=== PATIENT | female | born 1975 | race Two or more races ===

== ENCOUNTER 2017-03-22 17:32 | Inpatient (IN) | payer MEDICAID, SELFPAY ==
[2017-03-22] VITALS (7 sets, daily range): BP systolic 80–120; BP diastolic 45–65; PULSE 54–90; RESP 16–19; TEMP 37.2–38.9; O2SAT 94–99; BMI 24.0
[2017-03-22] MEDS: Ketorolac 30 MG/ML Syringe IV (18:06)
[2017-03-22] MEDS: 0.9% Normal Saline 1,000 ML 1000 ML IV (18:06)
[2017-03-22] MEDS: Ondansetron 4 MG/2 ML Vial IV (18:06)
[2017-03-22 18:25] LABS: Absolute Lymphocyte Count 0.37 X10^3/ul (0.83-4.51); Absolute Neutrophil Count 8.8 X10^3/uL (2.0-7.7); Basophil# 0.01 X10^3/uL; Basophil% 0.1 % (0-1); Differential Indicated SCAN CRITERIA MET; Eosinophil# 0.01 X10^3/uL; Eosinophils% 0.1 % (0-5); Hematocrit 36.5 % (37-47); Hemoglobin 12.2 g/dl (12.0-15.0); Lymphocyte # 0.37 X10^3/ul (4.0); Lymphocyte % 3.7 % (19-41); Mean Corp Hgb Conc 33.4 g/gl (32-36); Mean Corpuscular Hgb 32.9 pg (27.0-32.0); Mean Corpuscular Volume 98.4 fL (81-99); Mean Platelet Vol. 9.8 fl (6.2-12.0); Monocyte# 0.88 X10^3/uL; Monocyte% 8.7 % (0-10); Neutrophil # 8.81 X10^3/uL (2.7-7.7); Neutrophil % 87.3 % (47-70); POSITIVE COUNT NO; POSITIVE DIFFERENTIAL YES; POSITIVE MORPHOLOGY NO; Platelet Count 206 K/mm3 (150-450); RBC Distribution Width CV 14.8 % (11.6-14.6); RBC Distribution Width SD 52.9 fl (35.1-43.9); Red Blood Count 3.71 M/mm3 (4.2-5.4); White Blood Count 10.1 K/mm3 (4.4-11.0)
[2017-03-22 18:29] LABS: Anion Gap 10 (5-15); BUN 8 mg/dL (7-18); BUN/Creat Ratio 8.2 RATIO (10-20); Calcium,Total 8.5 mg/dL (8.5-10.1); Chloride 104 mmol/L (98-107); Creatinine, Serum 0.97 mg/dL (0.55-1.02); EST Glomerular Filtration Rate 67 mL/min (>60); Est Glom Filt Rate - Afr Amer 81 mL/min (>60); Estimated Creatinine Clearance 65.91 ml/min; Glucose 103 mg/dL (70-110); Sodium Level 140 mmol/L (136-145)
[2017-03-22 18:48] LABS: Bacteria 0 SEEN /hpf (None Seen); Mucous, Urine 0 SEEN /hpf (<or=2+); Red Blood Cells-Urine 0 SEEN /hpf (0-5); Squamous Epithelial Cells - UA 0 SEEN /hpf (5-10)
[2017-03-22 18:55] LABS: Color, Urine Yellow (Yellow); Glucose, Dipstick Normal (Normal); Ketone-Dipstick Negative (Negative); Leukocyte Esterase-Dipstick 500 /ul (Negative); Nitrite-Dipstick Positive (Negative); Occult Blood-Urine 250 /ul (Negative); Protein-Dipstick 100 mg/dl (Negative); Specific Gravity, Urine 1.015 (1.002-1.030); Urine Bilirubin Dipstick Negative (Negative); Urine Clarity Cloudy (Clear); Urine Urobilinogen Normal (Normal)
[2017-03-22 19:11] LABS: White Blood Cells >100 SEEN /hpf (0-5)
[2017-03-22 19:18] LABS: Pregnancy, Serum, hCG Quali. NEGATIVE Negative (0-9 Nonpreg)
[2017-03-22] MEDS: 0.9% Normal Saline 1,000 ML 150 ML IV (20:07)
[2017-03-22] MEDS: Ceftriaxone 1 GM/50 ML BAG IV (20:07)
--- NOTE | 2017-03-22 20:13 | ED.DCSUM_ITS ---
- ER Visit Summary Date of Service: 03/22/17 Chief Complaint: Bad UTI History of Present Illness: The patient is a 41 F who reports a 2-3 day history of dysuria and frequency. She is complaining of right flank pain. She has had nausea but no vomiting. She denies diarrhea. Patient states she went to the urgent care where they would not see her and sent her here to the emergency room. Patient denies any significant past medical history. Physical Examination: Blood pressure is 120/65, temperature 101.2, heart rate 90 , respiratory rate 18, pulse ox 99% on room air. Patient's lying on her left side. She appears ill, but not toxic. Head and neck examination is grossly unremarkable. Heart is regular rate and rhythm. Lung sounds are clear. Abdomen is soft with epigastric and suprapubic tenderness. There is no guarding or rebound. Hypoactive but present bowel sounds are noted. Back examination does reveal right CVA tenderness. Test Results: CBC was normal white count with 87% neutrophils. Chemistry studies are normal. Urinalysis returns positive for nitrates and rhythm 100 white blood cells. test is negative. Emergency Department Course and Treatment: Patient was given Toradol, Zofran, and IV fluids. On repeat evaluation patient states she feels improved. Test results were discussed with her. Plan was to give a dose of IV Rocephin and then discharged with a week prescription for Bactrim to cover for pyelonephritis. Nursing staff recheck the patient's vital signs after IV Rocephin. Blood pressure is 87/58, heart rate 80, respiratory rate 16, pulse ox 96% on room air, temperature 101.7. At that time p.o. Tylenol and an additional 500 cc IV fluid bolus is ordered. Repeat vital signs currently reveal blood pressure of 80/46, heart rate 82, respiratory rate 16, pulse ox 96 % on room air, temperature 102.1. At this time blood cultures and lactate will be drawn. Patient is given additional IV fluids. Patient will be admitted for further treatment and evaluation. Treatment Plan: [] Disposition: Admit Impression: 1. Pyelonephritis 2. Hypotension This note was generated with HypeSparkation software. It may contain incorrect words, spelling, and punctuation that were not noted in review of the chart prior to signing ED Disposition - Plan for ED Patient: Disposition: Home or Assisted Living Chief Complaint: Complaint Instructions: ED UTI Cystitis Female Prescriptions: Ondansetron [Zofran Odt] 4 mg PO Q8H PRN PRN #10 tablet PRN Reason: Nausea Smz/Tmp Ds [Bactrim Ds] 1 tablet PO BID #14 tablet Referrals: Maribel Mc MD [STAFF PHYSICIAN] - As soon as possible
[2017-03-22] MEDS: Acetaminophen 500 MG Tablet 1000 MG PO (21:03)
[2017-03-22] MEDS: 0.9% Normal Saline 1,000 ML 999 ML IV (22:16)
[2017-03-22] MEDS: Ibuprofen 600 MG Tablet PO (22:17)
[2017-03-22 23:03] LABS: Lactic Acid 0.7 mmol/L (0.4-2.0)
--- NOTE | 2017-03-22 23:10 | PCM.HP.STD ---
Problem List (1) Tobacco use Status: Chronic (2) Pyelonephritis Status: Acute History of Present Illness Date of Admission: 03/22/17 Chief Complaint: Urinary sxs. The patient is a 41 y/o F w/ PMHx: Tobacco use who presents to the [facility] ED on 03/22/17 with history of dysuria, foul smelling urine, right flank pain with body headaches, headache and fever with evaluation at with referral to the ED. She notes being relatively healthy but notes ~ 17 years ago following the of her daughter she had an episode of pyelonephritis and these symptoms mirror what she felt like then. In the ED work-up included T 102.1, HR 80-90s documented, tachycardic on examination, BP 120/65-->-->85/45-->91/58, RR 16, 97% on RA, CBC w/ WBC 10.2, Hgb 12.2, Plts 206 with L shift, BMP not marked appearing, LA 0.7, negative testing, UA remarkable w/ pending UCx, Bld Cx obtained also in the ED. In the ED patient administered 2L NS, zofran, toradol, motrin, rocephin. Past Medical History Past Medical History (Chronic Problems): Chronic Problems Tobacco use (Chronic) Allergies codeine Allergy (Verified 03/22/17 17:36) Itching hydromorphone [From Dilaudid] Allergy (Verified 03/22/17 17:36) Itching andrzej Allergy (Verified 03/22/17 17:36) Itching Home Medications: Ambulatory Orders Medication Instructions Recorded Ondansetron [Zofran Odt] 4 mg PO Q8H PRN PRN #10 tablet 03/22/17 Smz/Tmp Ds [Bactrim Ds] 1 tablet PO BID #14 tablet 03/22/17 Psychiatric History: No pertinent psych hx MULTIMEDIA ARTIST History: No pertinent MULTIMEDIA ARTIST history Lives: With Family Smoking Status: Current some day smoker - She notes ~ 1 pack per week, commonly vaps instead, not heavy smoker. Tobacco Use: Cigarettes Alcohol: Occasional Drugs: None - *Family History Maternal History Items: - - Mother w/ thyroid disease. Paternal History Items: No pertinent history Review of Systems Constitutional: Reports: Chills, Fever, Malaise, Fatigue. Denies: Weight Change HEENT: Denies: Head Aches, Sinus Congestion, Sinus Drainage Cardiovascular: Denies: Chest Pain, Palpitations Respiratory: Denies: Cough, Shortness of breath at rest, Sputum production Gastrointestinal: Reports: Abdominal Pain, Nausea. Denies: Vomiting Genitourinary: Reports: Dysuria Musculoskeletal: Reports: Back Pain. Denies: Joint Pain, Joint Tenderness Skin: Denies: Rash, Wounds Neurological: Denies: Numbness, Tingling, Focal weakness Psychiatric: Denies: Anxiety, Depression, Homicidal Ideations, Suicidal Ideations Hematologic/ Lymphatic: Denies: Easy Bruising, Easy Bleeding VTE Information - Inpt Only VTE Present on Admission: No VTE Mechan Device Prophylaxis: SCD's VTE Pharm Prophylaxis ordered?: Yes Patient Problems: Active and Suspected Problems Pyelonephritis (Acute) Subjective: Seated upright in the ED bed, grimacing mildly with movement, NAD. Objective: Physical Examination: General: awake, alert, oriented x 3 and cooperative, seated upright in the ED bed, fatigued. Skin: normal color, turgor, no icterus, cyanosis. HEENT: AT/NC, EOMI, PERRLA, mildly dry MM, no carotid bruits or JVD noted. Lungs: CTA bilaterally, moderate effort, moderate decrease BL bases, no rales, ronchi or wheezing, R CVA TTP. Heart: Mildly tachycardic (low-100s upon count) with regular rhythm; no gallop, rub audible. Abdomen: soft, mild TTP R sided, ND, normal BS, no HSM. Extremities: no cyanosis, clubbing, or edema. Neurological: patient awake, alert, oriented x 3; cognitive function intact; pupils equally reactive to light and accomodation; cranial nerves II-XII grossly normal, moving all 4 extremities, no focal deficits, strength moderately globally decreased secondary to acute presentation. Psychiatric: affect appears fatigued, no acute evidence of depressive or anxiety feelings. - Physical Exam Vital Signs Temp Pulse Resp BP Pulse Ox 102.1 F H 87 16 91/58 L 94 03/22/17 21:49 03/22/17 22:44 03/22/17 22:44 03/22/17 22:44 03/22/17 22:44 Oxygen Delivery Method Room Air Weight: 140 lb 6.951 oz Body Mass Index (BMI) 24.0 Laboratory Tests Past 24 Hrs 03/22/17 03/22/17 03/22/17 18:08 18:08 18:08 WBC 10.1 RBC 3.71 L Hgb 12.2 Hct 36.5 L MCV 98.4 MCH 32.9 H MCHC 33.4 RDW 14.8 H RDW Differential 52.9 H Plt Count 206 MPV 9.8 Immature Gran % (Auto) 0.100 Neut % (Auto) 87.3 H Lymph % (Auto) 3.7 L [place] % (Auto) 8.7 Eos % (Auto) 0.1 Baso % (Auto) 0.1 Absolute Neuts (auto) 8.8 H Absolute Lymphs (auto) 0.37 L Total Counted Not Reportable Sodium 140 Potassium 4.0 Chloride 104 Carbon Dioxide 26.0 Anion Gap 10 BUN 8 Creatinine 0.97 Estim Creat Clear Calc 65.91 Est GFR (MDRD) Af Amer 81 Est GFR (MDRD) Non-Af 67 BUN/Creatinine Ratio 8.2 L Glucose 103 Lactic Acid Calcium 8.5 Serum , Qual NEGATIVE Urine Color Urine Clarity Urine pH Ur Specific [place] Urine Protein Urine Glucose (UA) Urine Ketones Urine Occult Blood Urine Nitrite Urine Bilirubin Urine Urobilinogen Ur Leukocyte Esterase Urine RBC Urine WBC Ur Squamous Epith Cells Urine Bacteria Urine Mucus 03/22/17 03/22/17 18:42 22:00 WBC RBC Hgb Hct MCV MCH MCHC RDW RDW Differential Plt Count MPV Immature Gran % (Auto) Neut % (Auto) Lymph % (Auto) [place] % (Auto) Eos % (Auto) Baso % (Auto) Absolute Neuts (auto) Absolute Lymphs (auto) Total Counted Sodium Potassium Chloride Carbon Dioxide Anion Gap BUN Creatinine Estim Creat Clear Calc Est GFR (MDRD) Af Amer Est GFR (MDRD) Non-Af BUN/Creatinine Ratio Glucose Lactic Acid 0.7 Calcium Serum , Qual Urine Color Yellow Urine Clarity Cloudy Urine pH 6.0 Ur Specific [place] 1.015 Urine Protein 100 H Urine Glucose (UA) Normal Urine Ketones Negative Urine Occult Blood 250 H Urine Nitrite Positive H Urine Bilirubin Negative Urine Urobilinogen Normal Ur Leukocyte Esterase 500 H Urine RBC 0 SEEN Urine WBC >100 SEEN Ur Squamous Epith Cells 0 SEEN Urine Bacteria 0 SEEN Urine Mucus 0 SEEN Assessment/Plan Active and Suspected Problems Pyelonephritis (Acute) The patient is a 41 y/o F w/ PMHx: Tobacco use who presents to the [facility] ED on 03/22/17 with history of dysuria, foul smelling urine, right flank pain with body headaches, headache and fever with evaluation at with referral to the ED. (1) Sepsis secondary to Acute Pyelonephritis: Febrile in the ED, hypotensive requiring >2L NS administration, tachycardic upon evaluation low-100s. Will admit to [facility], UA upon ED evaluation remarkable, pending UCx, admission CBC w/ WBC 10.2 with L shift, continue IVFs, monitor I/Os, continue IV Rocephin w/ transition as able pending sensitivities and speciation. Bld cx x 2 obtained in the ED. PRN pain regimen, nausea regimen. (2) Tobacco Abuse: Encouraged cessation, inpatient consultation per RT, NR if desired but level lower than lowest patch available. (3) DVT prophylaxis: SCDs, low risk. Code Visit OBSV E&M: 65921 Initial observation care L3
--- NOTE | 2017-03-22 23:19 | HP.PCM_ITS ---
Problem List (1) Tobacco use Status: Chronic (2) Pyelonephritis Status: Acute History of Present Illness Date of Admission: 03/22/17 Chief Complaint: Urinary sxs. The patient is a 41 y/o F w/ PMHx: Tobacco use who presents to the [facility] ED on with history of dysuria, foul smelling urine, right flank pain with body headaches, headache and fever with evaluation at with referral to the ED. She notes being relatively healthy but notes ~ 17 years ago following the of her daughter she had an episode of pyelonephritis and these symptoms mirror what she felt like then. In the ED work-up included T 102.1, HR 80-90s documented, tachycardic on examination, BP 120/65-->-->85/45-->91/58, RR 16, 97 % on RA, CBC w/ WBC 10.2, Hgb 12.2, Plts 206 with L shift, BMP not marked appearing, LA 0.7, negative testing, UA remarkable w/ pending UCx, Bld Cx obtained also in the ED. In the ED patient administered 2L NS, zofran, toradol, motrin, rocephin. Past Medical History Past Medical History (Chronic Problems): Chronic Problems Tobacco use (Chronic) Allergies codeine Allergy (Verified 03/22/17 17:36) Itching hydromorphone [From Dilaudid] Allergy (Verified 03/22/17 17:36) Itching andrzej Allergy (Verified 03/22/17 17:36) Itching Home Medications: Ambulatory Orders Medication Instructions Recorded Ondansetron [Zofran Odt] 4 mg PO Q8H PRN PRN #10 tablet 03/22/17 Smz/Tmp Ds [Bactrim Ds] 1 tablet PO BID #14 tablet 03/22/17 Psychiatric History: No pertinent psych hx LAB TECH History: No pertinent LAB TECH history Lives: With Family Smoking Status: Current some day smoker - She notes ~ 1 pack per week, commonly vaps instead, not heavy smoker. Tobacco Use: Cigarettes Alcohol: Occasional Drugs: None - *Family History Maternal History Items: - - Mother w/ thyroid disease. Paternal History Items: No pertinent history Review of Systems Constitutional: Reports: Chills, Fever, Malaise, Fatigue. Denies: Weight Change HEENT: Denies: Head Aches, Sinus Congestion, Sinus Drainage Cardiovascular: Denies: Chest Pain, Palpitations Respiratory: Denies: Cough, Shortness of breath at rest, Sputum production Gastrointestinal: Reports: Abdominal Pain, Nausea. Denies: Vomiting Genitourinary: Reports: Dysuria Musculoskeletal: Reports: Back Pain. Denies: Joint Pain, Joint Tenderness Skin: Denies: Rash, Wounds Neurological: Denies: Numbness, Tingling, Focal weakness Psychiatric: Denies: Anxiety, Depression, Homicidal Ideations, Suicidal Ideations Hematologic/ Lymphatic: Denies: Easy Bruising, Easy Bleeding VTE Information - Inpt Only VTE Present on Admission: No VTE Mechan Device Prophylaxis: SCD's VTE Pharm Prophylaxis ordered?: Yes Patient Problems: Active and Suspected Problems Pyelonephritis (Acute) Subjective: Seated upright in the ED bed, grimacing mildly with movement, NAD. Objective: Physical Examination: General: awake, alert, oriented x 3 and cooperative, seated upright in the ED bed, fatigued. Skin: normal color, turgor, no icterus, cyanosis. HEENT: AT/NC, EOMI, PERRLA, mildly dry MM, no carotid bruits or JVD noted. Lungs: CTA bilaterally, moderate effort, moderate decrease BL bases, no rales, ronchi or wheezing, R CVA TTP. Heart: Mildly tachycardic (low-100s upon count) with regular rhythm; no gallop, rub audible. Abdomen: soft, mild TTP R sided, ND, normal BS, no HSM. Extremities: no cyanosis, clubbing, or edema. Neurological: patient awake, alert, oriented x 3; cognitive function intact; pupils equally reactive to light and accomodation; cranial nerves II-XII grossly normal, moving all 4 extremities, no focal deficits, strength moderately globally decreased secondary to acute presentation. Psychiatric: affect appears fatigued, no acute evidence of depressive or anxiety feelings. - Physical Exam Vital Signs Temp Pulse Resp BP Pulse Ox 102.1 F H 87 16 91/58 L 94 03/22/17 21:49 03/22/17 22:44 03/22/17 22:44 03/22/17 22:44 03/22/17 22:44 Oxygen Delivery Method Room Air Weight: 140 lb 6.951 oz Body Mass Index (BMI) 24.0 Laboratory Tests Past 24 Hrs 03/22/17 03/22/17 03/22/17 18:08 18:08 18:08 WBC 10.1 RBC 3.71 L Hgb 12.2 Hct 36.5 L MCV 98.4 MCH 32.9 H MCHC 33.4 RDW 14.8 H RDW Differential 52.9 H Plt Count 206 MPV 9.8 Immature Gran % (Auto) 0.100 Neut % (Auto) 87.3 H Lymph % (Auto) 3.7 L [place] % (Auto) 8.7 Eos % (Auto) 0.1 Baso % (Auto) 0.1 Absolute Neuts (auto) 8.8 H Absolute Lymphs (auto) 0.37 L Total Counted Not Reportable Sodium 140 Potassium 4.0 Chloride 104 Carbon Dioxide 26.0 Anion Gap 10 BUN 8 Creatinine 0.97 Estim Creat Clear Calc 65.91 Est GFR (MDRD) Af Amer 81 Est GFR (MDRD) Non-Af 67 BUN/Creatinine Ratio 8.2 L Glucose 103 Lactic Acid Calcium 8.5 Serum , Qual NEGATIVE Urine Color Urine Clarity Urine pH Ur Specific [place] Urine Protein Urine Glucose (UA) Urine Ketones Urine Occult Blood Urine Nitrite Urine Bilirubin Urine Urobilinogen Ur Leukocyte Esterase Urine RBC Urine WBC Ur Squamous Epith Cells Urine Bacteria Urine Mucus 03/22/17 03/22/17 18:42 22:00 WBC RBC Hgb Hct MCV MCH MCHC RDW RDW Differential Plt Count MPV Immature Gran % (Auto) Neut % (Auto) Lymph % (Auto) [place] % (Auto) Eos % (Auto) Baso % (Auto) Absolute Neuts (auto) Absolute Lymphs (auto) Total Counted Sodium Potassium Chloride Carbon Dioxide Anion Gap BUN Creatinine Estim Creat Clear Calc Est GFR (MDRD) Af Amer Est GFR (MDRD) Non-Af BUN/Creatinine Ratio Glucose Lactic Acid 0.7 Calcium Serum , Qual Urine Color Yellow Urine Clarity Cloudy Urine pH 6.0 Ur Specific [place] 1.015 Urine Protein 100 H Urine Glucose (UA) Normal Urine Ketones Negative Urine Occult Blood 250 H Urine Nitrite Positive H Urine Bilirubin Negative Urine Urobilinogen Normal Ur Leukocyte Esterase 500 H Urine RBC 0 SEEN Urine WBC >100 SEEN Ur Squamous Epith Cells 0 SEEN Urine Bacteria 0 SEEN Urine Mucus 0 SEEN Assessment/Plan Active and Suspected Problems Pyelonephritis (Acute) The patient is a 41 y/o F w/ PMHx: Tobacco use who presents to the [facility] ED on with history of dysuria, foul smelling urine, right flank pain with body headaches, headache and fever with evaluation at with referral to the ED. (1) Sepsis secondary to Acute Pyelonephritis: Febrile in the ED, hypotensive requiring >2L NS administration, tachycardic upon evaluation low-100s. Will admit to MS, UA upon ED evaluation remarkable, pending UCx, admission CBC w/ WBC 10.2 with L shift, continue IVFs, monitor I/Os, continue IV Rocephin w/ transition as able pending sensitivities and speciation. Bld cx x 2 obtained in the ED. PRN pain regimen, nausea regimen. (2) Tobacco Abuse: Encouraged cessation, inpatient consultation per RT, NR if desired but level lower than lowest patch available. (3) DVT prophylaxis: SCDs, low risk. Code Visit OBSV E&M: 86692 Initial observation care L3
[2017-03-23] VITALS (10 sets, daily range): BP systolic 77–113; BP diastolic 39–67; PULSE 54–80; RESP 16–18; TEMP 36.8–37.9; O2SAT 93–98; BMI 24.5
[2017-03-23] MEDS: 0.9% Normal Saline 1,000 ML 999 ML IV ×3 (00:30→02:50)
[2017-03-23] MEDS: Ketorolac 30 MG/ML Syringe IV ×2 (02:52→11:53)
[2017-03-23] MEDS: 0.9% Normal Saline 1,000 ML 150 ML IV ×2 (05:00→11:54)
[2017-03-23] MEDS: Famotidine 20 MG Tablet PO ×2 (08:33→21:32)
[2017-03-23] MEDS: Acetaminophen 325 MG Tablet 650 MG PO ×3 (08:37→21:32)
--- NOTE | 2017-03-23 09:45 | CASEMGMT ---
Social Work Assessment Referral Date: 03/23/2017 Date of Assessment: 03/23/2017 Reason for Consult: SP Informant: Self-Referral Personal Status: Mentation: Pt is alert and oriented x4. Presents with pleasant affect as evidenced by smiling and willingness to participate in assessment. Present during assessment: Pt's 13 y/o son is asleep in room during assessment. Pt able to complete assessment independently. Living Arrangements: Pt lives with her two children in a private home. Her 18 y/o daughter and 13 y/o son live with her and her 8 y/o child lives with his father presently. Denies access issues. Confirms ability to pay mortgage and meet living needs. 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 Is paid weekly on and last check was $160. States she was told that she would not qualify for Medicaid in the past, but her children are insured. Complete application with pt at this time to submit to [employer]. Family Dynamics: Pt reports to have a supportive family, but that they live approximately 1 hour away. Supports: Pt identifies her mother and her daughter. ADLs: Pt independent with ADL care. Substance Use Hx and Current Pattern of Use: Alcohol: Yes Methamphetamine: No Tobacco: Yes Cocaine: No Marijuna: No Prescription Drugs: No Heroin: No Other: Denies Treatment? No Pt reports to socially drink alcohol. Denies concern with hindrance on ability to care for children or maintain employment. Pt does smoke daily, and denies interest in quitting at this time. No additional substance use concerns. Mental Health Hx and Current Status: Diagnoses: None reported. Stressors: Reports daughters friend this month, her dog was attacked, had car difficulty and now hospitalized. SI or HI? No Treatment? No Pt denies mental health history. Does become tearful during discussion of current stressors. Pt has been overwhelmed this last month with several new changes. Emotional support provided. Educated pt to community resources in [facility]. Pt thanks and accepts information. Pt denies SI or HI. Resources: JFS: Food assistance, Children have Medicaid. Completed and submitted Medicaid application with pt. Intervention: Assessment completed and needs identified. Medicaid application completed and submitted to [employer] at [phone]. Copy placed on chart and original provided to the patient. Discussed that pt will need to provide pay stubs and bank statements. Also informed that if processed and approved Medicaid is retroactive for 30 days prior to application submission. Pt identifies major stressors in the last month. Assessed for SI or HI which pt denies. Provided with resources in the community that would assist with counseling if needed. Pt is appropriate in responses to concerns. Pt does not have PCP and provided with community resources for primary care and dental services for the uninsured. Nursing expressed concern with pt's 8 y/o getting off the bus with no one to get him, pt confirms the child lives with his father. Father was supposed to leave for ski trip this date, but may delay since pt is in hospital. Pt reports that if he maintains his plans to leave her sister will be getting him off of the bus. No additional concerns identified. Plan: Home with no additional needs. RISHI Ji PIN ATTACHER
[2017-03-23 09:49] LABS: Absolute Neutrophil Count 8.7 X10^3/uL (2.0-7.7); Basophil# 0.01 X10^3/uL; Basophil% 0.1 % (0-1); Eosinophil# 0.02 X10^3/uL; Eosinophils% 0.2 % (0-5); Hematocrit 30.3 % (37-47); Mean Corpuscular Hgb 32.4 pg (27.0-32.0); Mean Corpuscular Volume 98.1 fL (81-99); Mean Platelet Vol. 9.4 fl (6.2-12.0); Monocyte# 0.77 X10^3/uL; Monocyte% 7.7 % (0-10); Neutrophil # 8.73 X10^3/uL (2.7-7.7); Neutrophil % 87.8 % (47-70); Platelet Count 160 K/mm3 (150-450); RBC Distribution Width CV 14.9 % (11.6-14.6); RBC Distribution Width SD 53.9 fl (35.1-43.9); Red Blood Count 3.09 M/mm3 (4.2-5.4)
[2017-03-23] MEDS: Ceftriaxone 1 GM/50 ML BAG IV (09:49)
[2017-03-23 09:53] LABS: Differential Indicated SCAN CRITERIA MET; POSITIVE COUNT NO; POSITIVE DIFFERENTIAL YES; POSITIVE MORPHOLOGY NO
[2017-03-23 10:03] LABS: Differential Comment SCANNED
[2017-03-23] MEDS: 0.9% NaCl Peripheral Flush Adult/Peds IV ×2 (11:53→17:09)
[2017-03-23] MEDS: DiphenhydrAMINE 50 MG/ML Syringe 25 MG IV (17:09)
--- NOTE | 2017-03-23 19:58 | PN_ITS ---
Subjective: Patient was seen and examined today, she became very upset that she had generalized swelling of her face and trunk, she requested an immediate weight be performed on her, I told her that this swelling was secondary to vigorous fluid administration and that her weight would not make any difference at which point she became very belligerent to this examiner, I also asked her why she was taking acyclovir and she stated loudly that she did not want to discuss this in front of her son who was sleeping on a chair. Patient continues to complain of left flank pain, she states she is intolerant to many narcotics but she is willing to try morphine for her flank pain. I discussed possibility of ordering a ultrasound to make sure she did not have a kidney stone or ureteral stone and after discussing this with her we have decided to hold off ordering the ultrasound. She requested that she be given ibuprofen so she can alternate between ibuprofen and Tylenol if she wanted to for fever. I told her that was okay. Preliminary urine culture was positive for gram-negative jennifer-this is most likely E. coli. Patient's blood pressure has stabilized and I do not feel she needs any IV fluids at this time. Patient' s white count remained normal this morning. - Physical Exam General: Alert, Oriented x3, Cooperative, No apparent distress, Well developed, Well nourished HEENT: Atraumatic, PERRLA, EOMI, Normocephalic Oral: Moist Mucosa Neck: Supple, No JVD, No Nuchal Rigidity, Trachea Midline, Thyroid Normal Size and Texture Lungs: Clear to auscultation, Normal air movement, No rhonchi, No wheeze, No rales Cardiovascular: Regular rate, Regular Rhythm, Normal S1, Normal S2, No murmurs Abdomen: Bowel Sounds Present, Soft, Non Tender, Non-Distended, No hernias noted Extremities: No clubbing, No cyanosis, Capillary Refill Less than 3 Seconds, Edema - Mild edema of the face and trunk is noted Skin: No rashes, No breakdown Musculoskeletal: No Tenderness to Palpation of Joints or Extremities, No Muscle Wasting Neurological: Cranial nerves II-XII grossly intact, Neuro grossly intact, Muscle tone normal, Sensory exam intact to light touch and pain, Coordination normal Psych/Mental Status: Normal Affect, Appropriate, Alert and oriented to time, place, person, mood and affect Vital Signs Temp Pulse Resp BP Pulse Ox 99.9 F H 66 18 113/60 94 03/23/17 17:13 03/23/17 15:18 03/23/17 15:18 03/23/17 15:18 03/23/17 15:18 Oxygen Delivery Method Room Air Weight: 64.7 kg Body Mass Index (BMI) 24.5 Intake and Output for Last 24 Hours 03/21/17 03/22/17 03/23/17 23:59 23:59 23:59 Intake Total 2855 / 2855 Output Total 800 / 800 Balance 2054 / 2054 Laboratory Tests Past 24 Hrs 03/23/17 09:30 WBC 10.0 RBC 3.09 L Hgb 10.0 L Hct 30.3 L MCV 98.1 MCH 32.4 H MCHC 33.0 RDW 14.9 H RDW Differential 53.9 H Plt Count 160 MPV 9.4 Immature Gran % (Auto) 0.200 Neut % (Auto) 87.8 H Lymph % (Auto) 4.0 L [place] % (Auto) 7.7 Eos % (Auto) 0.2 Baso % (Auto) 0.1 Absolute Neuts (auto) 8.7 H Absolute Lymphs (auto) 0.40 L Total Counted Not Reportable Differential Comment SCANNED Assessment/Plan #1 acute sepsis secondary to E. coli pyelonephritis-stop IV fluids at this time , I do not believe patient needs IV fluids #2 E. coli pyelonephritis-continue present antibiotic coverage, await sensitivities Code Visit Inpatient E&M: 84257 Subs Hosp L2
[2017-03-23] MEDS: Zolpidem Tartrate 5 MG Tablet PO (22:15)
[2017-03-23] MEDS: Acyclovir 200 MG Capsule 400 MG PO (22:16)
[2017-03-24 02:00] VITALS: BP 102/72; PULSE 69; RESP 16; TEMP 37.1; O2SAT 98
[2017-03-24] MEDS: DiphenhydrAMINE 50 MG/ML Syringe 25 MG IV (03:15)
[2017-03-24] MEDS: Ibuprofen 400 MG Tablet PO (04:31)
[2017-03-24 07:48] VITALS: O2SAT 97
[2017-03-24 09:00] VITALS: BP 104/71; PULSE 64; RESP 14; TEMP 37; O2SAT 98
[2017-03-24 09:31] LABS: Absolute Lymphocyte Count 1.03 X10^3/ul (0.83-4.51); Absolute Neutrophil Count 8.8 X10^3/uL (2.0-7.7); Basophil# 0.01 X10^3/uL; Basophil% 0.1 % (0-1); Eosinophil# 0.06 X10^3/uL; Eosinophils% 0.6 % (0-5); Hematocrit 30.3 % (37-47); Hemoglobin 10.1 g/dl (12.0-15.0); Lymphocyte # 1.03 X10^3/ul (4.0); Lymphocyte % 9.5 % (19-41); Mean Corp Hgb Conc 33.3 g/gl (32-36); Mean Corpuscular Hgb 32.5 pg (27.0-32.0); Mean Corpuscular Volume 97.4 fL (81-99); Mean Platelet Vol. 9.8 fl (6.2-12.0); Monocyte# 0.94 X10^3/uL; Monocyte% 8.6 % (0-10); Neutrophil # 8.81 X10^3/uL (2.7-7.7); Platelet Count 172 K/mm3 (150-450); RBC Distribution Width CV 14.9 % (11.6-14.6); RBC Distribution Width SD 53.5 fl (35.1-43.9); Red Blood Count 3.11 M/mm3 (4.2-5.4); White Blood Count 10.9 K/mm3 (4.4-11.0)
[2017-03-24] MEDS: Ceftriaxone 1 GM/50 ML BAG IV (09:34)
[2017-03-24] MEDS: Acetaminophen 325 MG Tablet 650 MG PO (09:35)
[2017-03-24] MEDS: Famotidine 20 MG Tablet PO (09:35)
[2017-03-24] MEDS: Acyclovir 200 MG Capsule 400 MG PO (09:35)
[2017-03-24 09:36] LABS: POSITIVE COUNT NO; POSITIVE DIFFERENTIAL NO; POSITIVE MORPHOLOGY NO
[2017-03-24] MEDS: 0.9% NaCl Peripheral Flush Adult/Peds IV (09:36)
--- NOTE | 2017-03-24 11:25 | PCM.DC ---
- Discharge Diagnoses Current Active Problems: Current Active and Chronic Problems Tobacco use (Chronic) Pyelonephritis (Acute) You will use the following diet at home:: No restrictions Your liquids should be the consistency of: Regular/Thin Discharge Activity: Return to Normal Activity Weight Bearing Status: Full weight bearing Instructions: ED UTI Cystitis Female Allergies/Adverse Reactions: Allergies codeine Allergy (Verified 03/22/17 17:36) Itching hydromorphone [From Dilaudid] Allergy (Verified 03/22/17 17:36) Itching andrzej Allergy (Verified 03/22/17 17:36) Itching oxycodone [From Percocet] Allergy (Verified 03/23/17 08:23) Itching Medications to take at Discharge Acyclovir 400 tab PO DAILY 03/23/17 Smz/Tmp Ds [Bactrim Ds] 1 tab PO BID #20 tab 03/24/17 The following prescriptions were given: Smz/Tmp Ds [Bactrim Ds] 1 tab PO BID #20 tab Primary Care Physician: Maribel cM MD [STAFF PHYSICIAN] - As soon as possible Please follow up with your Primary Care Physician in: in 2 weeks
[2017-03-24] MEDS: Acetaminophen/Butalbital/Caffe 1 Tablet 2 TABLET PO (12:52)
--- NOTE | 2017-03-26 08:10 | PCM.DC.SUM ---
Discharge Date and Diagnosis Date of Admission: 03/22/17 Date of Discharge: 03/24/17 - Primary Discharge Diagnosis #1 acute sepsis secondary to E. coli from pyelonephritis #2 E. coli pyelonephritis #3 acute migraine - Secondary Discharge Diagnosis Chronic Problems Tobacco use (Chronic) Hospital Course and Treatment Operations: None Procedures: None Summary of Care Provided: The patient is a 41 year old F who was seen in the emergency room at [facility] with complaints of urinary frequency and dysuria. She was also complaining of right flank pain. Workup in the emergency room included a CBC which was unremarkable, chemistry studies were normal. Urinalysis indicated a urinary tract infection, she was noted to be hypotensive in the emergency room and required multiple rounds of fluid administration. Patient's temperature was 102.1. Patient was admitted to [place] [address] for acute sepsis from pyelonephritis, IV fluids were administered and the patient's blood pressure responded. Follow-up labs revealed no elevation of her white blood cell count, urinary culture was positive for E. coli. Patient had one episode of migraine which was treated with Fioricet. On 03/24/17, patient was seen and examined felt to be in stable condition for discharge home Discharge Activity: Return to Normal Activity Weight Bearing Status: Full weight bearing Home Medications: Medications to take at Discharge Acyclovir 400 tab PO DAILY 03/23/17 Smz/Tmp Ds [Bactrim Ds] 1 tab PO BID #20 tab 03/24/17 Following Prescrptions Were Given to Patient: Smz/Tmp Ds [Bactrim Ds] 1 tab PO BID #20 tab Primary Care Physician: Maribel Mc MD [STAFF PHYSICIAN] - As soon as possible Please follow up with your Primary Care Physician in: in 2 weeks Patient Instructions: ED UTI Cystitis Female Disposition: Home Minutes spent on discharge:: 34 Patient Condition:: Stable Meaningful Use Info Meaningful Use Diagnoses (Choose all that apply): None applicable Code Visit Inpatient E&M: 41906 Disch Hosp
--- NOTE | 2017-03-26 08:13 | DS.PCM_ITS ---
Discharge Date and Diagnosis Date of Admission: 03/22/17 Date of Discharge: 03/24/17 - Primary Discharge Diagnosis #1 acute sepsis secondary to E. coli from pyelonephritis #2 E. coli pyelonephritis #3 acute migraine - Secondary Discharge Diagnosis Chronic Problems Tobacco use (Chronic) Hospital Course and Treatment Operations: None Procedures: None Summary of Care Provided: The patient is a 41 year old F who was seen in the emergency room at [facility] with complaints of urinary frequency and dysuria. She was also complaining of right flank pain. Workup in the emergency room included a CBC which was unremarkable, chemistry studies were normal. Urinalysis indicated a urinary tract infection, she was noted to be hypotensive in the emergency room and required multiple rounds of fluid administration. Patient's temperature was 102.1. Patient was admitted to [place] [address] for acute sepsis from pyelonephritis, IV fluids were administered and the patient's blood pressure responded. Follow-up labs revealed no elevation of her white blood cell count, urinary culture was positive for E. coli. Patient had one episode of migraine which was treated with Fioricet. On 03/24/17, patient was seen and examined felt to be in stable condition for discharge home Discharge Activity: Return to Normal Activity Weight Bearing Status: Full weight bearing Home Medications: Medications to take at Discharge Acyclovir 400 tab PO DAILY 03/23/17 Smz/Tmp Ds [Bactrim Ds] 1 tab PO BID #20 tab 03/24/17 Following Prescrptions Were Given to Patient: Smz/Tmp Ds [Bactrim Ds] 1 tab PO BID #20 tab Primary Care Physician: Maribel Mc MD [STAFF PHYSICIAN] - As soon as possible Please follow up with your Primary Care Physician in: in 2 weeks Patient Instructions: ED UTI Cystitis Female Disposition: Home Minutes spent on discharge:: 34 Patient Condition:: Stable Meaningful Use Info Meaningful Use Diagnoses (Choose all that apply): None applicable Code Visit Inpatient E&M: 18357 Disch Hosp
== END 2017-03-24 13:52 | disposition home or self-care (01) | DRG 872 ==
LOC: ED 20:15 → MS3 23:42
PROVIDERS: Admitting Provider Family Medicine; Emergency Provider Emergency Medicine; Visit Provider Internal Medicine
DX: A41.51 Sepsis due to Escherichia coli [E. coli] (principal); N10 Acute pyelonephritis; F17.210 Nicotine dependence, cigarettes, uncomplicated; B96.20 Unspecified Escherichia coli [E. coli] as the cause of diseases classified elsewhere; G43.909 Migraine, unspecified, not intractable, without status migrainosus
CPT/HCPCS: 36415; 80048; 81001; 83605; 84703; 85025; 87040; 87077; 87086; 87088; 87186; 97802; 99283; 99406; J7030; J7040; J7050; A4216; J2405